=== PATIENT | male | born 1990 | race Caucasian/White ===

== ENCOUNTER 2016-12-09 17:16 | Emergency (ER) | payer BC, OTHER ==
[2016-12-09 17:22] VITALS: BP 137/86; PULSE 70; TEMP 98; BMI 26.7
[2016-12-09] MEDS ORDERED: RANITIDINE HCL 150 MG TABLET (FP) PO ONE (17:56)
[2016-12-09] MEDS ORDERED: MAG HYDROX/AL HYDROX/SIMETH 30 ML UNIT-DOSE CUP PO ONE (17:57)
--- NOTE | 2016-12-09 18:02 | PDOC ---
History of Present Illness - General Chief Complaint: Pain Stated Complaint: PAIN, ACUTE Time Seen by Provider: 12/09/16 17:40 History Source: Patient - History of Present Illness Timing/Duration: reports: changing over time Quality: reports: other Abdominal Pain Onset Location: reports: [facility] Pain Radiation: reports: no radiation Activities at Onset: reports: sleep Past History - Past Medical History Allergies/Adverse Reactions: Allergies Allergy/AdvReac Type Severity Reaction Status Date / Time No Known Allergies Allergy Verified 12/09/16 17:22 Home Medications: Ambulatory Orders No Home Medications 0 dose .ROUTE UTDICT 03/21/13 Famotidine [Pepcid] 20 mg PO DAILY #14 tablet 12/09/16 Mag Hydrox/Al Hydrox/Simeth [Mylanta Suspension -] 30 ml PO Q6H #1 bottle Other medical history: denies - Psycho/Social/Smoking Cessation Hx Anxiety: No Suicidal Ideation: No Smoking Status: No Smoking History: Never smoked Number of Cigarettes Smoked Daily: 0 Information on smoking cessation initiated: No Hx Alcohol Use: No Drug/Substance Use Hx: No Substance Use Type: None Review of Systems - Review of Systems Constitutional: No: Chills, Fever ABD/GI: No: Blood Streaked Bowels, Diarrhea, Nausea, Vomiting : No: Dysuria, Flank Pain, Hematuria *Physical Exam - Vital Signs Last Vital Signs Temp Pulse Resp BP Pulse Ox 98 F 70 17 137/86 100 12/09/16 17:20 12/09/16 17:20 12/09/16 17:20 12/09/16 17:20 12/09/16 17:20 - Physical Exam General Appearance: Yes: Appropriately Dressed. No: Apparent Distress HEENT: positive: Normal Voice Neck: positive: Supple Respiratory/Chest: positive: Lungs Clear, Normal Breath Sounds. negative: Respiratory Distress Cardiovascular: positive: Regular Rate, S1, S2 Gastrointestinal/Abdominal: positive: Normal Bowel Sounds, Tender (minimal ttp to L upper abd, no ttp to RUQ and no CVAT), Soft. negative: Distended, Guarding , Rebound Musculoskeletal: negative: CVA Tenderness Integumentary: positive: Dry, Warm Neurologic: positive: Fully Oriented, Alert, Normal Mood/Affect ED Treatment Course - LABORATORY CBC & Chemistry Diagram: 12/09/16 18:01 12/09/16 18:01 Medical Decision Making - Medical Decision Making 12/09/16 17:57 25-year-old male, denies any past medical history, here with abdominal pain. Patient reports waking up with upper abdominal pain this a.m. that has been mostly constant but gradually improving. Patient unable to describe pain but states at its worse it was 10 out of 10, now 6/10. Was able to tolerate po with no increase in pain. No nausea, vomiting, fever, chills, change to bowel movements or dysuria. No history of similar pain. Patient states last night he ate Sinhala food an hour before going to sleep last night See exam Upper abd pain, improving throughout the day Pt well emerald and stable in NAD +mininal ttp to L upper abd ?gastritis, no findings to suggest philly or renal colic -basic labs -GI cocktail -reassess 12/09/16 19:18 Labs unremarkable. Pt reports feeling better at this time. Will discharge at this time. Reasons to return d/w pt 12/09/16 19:21 *DC/Admit/Observation/Transfer Diagnosis at time of Disposition: Upper abdominal pain - Discharge Dispostion Disposition: HOME Condition at time of disposition: Improved - Prescriptions Prescriptions: Mag Hydrox/Al Hydrox/Simeth [Mylanta Suspension -] 30 ml PO Q6H #1 bottle Famotidine [Pepcid] 20 mg PO DAILY #14 tablet - Patient Instructions Printed Discharge Instructions: Gastritis Additional Instructions: Take medications as directed. If symptoms persists or worsens, return to ED - Post Discharge Activity Work/School Note: Back to Work
[2016-12-09] MEDS ORDERED: RANITIDINE HCL 150 MG TABLET (FP) ONE (18:06)
[2016-12-09] MEDS ORDERED: MAG HYDROX/AL HYDROX/SIMETH 30 ML UNIT-DOSE CUP ONE (18:06)
[2016-12-09 18:28] LABS: BASOPHIL 0.3 % (0-2.0); EOSINOPHIL 0.9 % (0-4.5); MCH 27.2 pg (25.7-33.7); MCHC 32.9 g/dl (32.0-35.9); MEAN CELL VOLUME 82.5 fl (80-96); MEAN PLT VOLUME 8.5 fl (7.5-11.1); NEUTROPHILS 68.9 % (42.8-82.8); PLATELET COUNT 214 K/MM3 (134-434); RDW 13.2 % (11.9-15.9); WHITE BLOOD COUNT 7.6 K/mm3 (4.0-10.0)
[2016-12-09 18:33] LABS: PH,URINE 7.5 (5.0-8.0); URINE APPEARANCE CLEAR; URINE BILIRUBIN NEGATIVE (NEGATIVE); URINE BLOOD NEGATIVE (NEGATIVE); URINE COLOR LT. YELLOW; URINE GLUCOSE (UA) NEGATIVE (NEGATIVE); URINE KETONE NEGATIVE (NEGATIVE); URINE LEUK ESTERASE NEGATIVE (NEGATIVE); URINE NITRITE NEGATIVE (NEGATIVE); URINE PROTEIN NEGATIVE (NEGATIVE); URINE UROBILINOGEN 0.2 E.U/dl E.U./dl (0.2-1.0)
[2016-12-09 18:54] LABS: ALBUMIN 4.1 g/dl (3.4-5.0); ANION GAP 9 (8-16); CALCIUM 9.3 mg/dL (8.5-10.1); CO2 29 mmol/L (21-32); GLUCOSE,RANDOM 88 mg/dL (74-106)
[2016-12-09 18:57] LABS: ALK PHOS 77 U/L (45-117); BILIRUBIN,TOTAL 0.3 mg/dL (0.2-1.0); COCKROFT - GAULT 135.1; CREATININE 1.2 mg/dL (0.7-1.3); SGOT/AST 11 U/L (15-37); SGPT/ALT 23 U/L (12-78); TOT PROT 8.2 g/dl (6.4-8.2)
== END 2016-12-09 19:35 | disposition home or self-care (01) ==
LOC: JERFT 17:16
DX: R10.12 Left upper quadrant pain (principal)
CPT/HCPCS: 36415; 80053; 81003; 83690; 85025; 99281-25

== ENCOUNTER 2017-02-05 12:07 | Emergency (ER) | payer BC ==
[2017-02-05 12:16] VITALS: BP 138/93; PULSE 90; TEMP 98.2; BMI 27.1
[2017-02-05] MEDS ORDERED: DIPHTH,PERTUSS(ACELL),TET 0.5 ML DISP.SYRIN IM ONE (13:17)
--- NOTE | 2017-02-05 13:21 | PDOC ---
History of Present Illness - General Chief Complaint: Laceration Stated Complaint: LACERATED LT FINGER Time Seen by Provider: 02/05/17 12:35 History Source: Patient Exam Limitations: No Limitations - History of Present Illness Initial Comments: 02/05/17 13:07 26-year-old male presents to the ED with complaints of right fourth digit laceration that he sustained while at work cutting a piece of plastic with a metal bleed. Patient states at around 9:00 incident occurred and states is not up-to-date on tetanus. Patient has no other complaints presently. Timing/Duration: reports: this morning Severity: Yes: mild Respiratory Risk Factors: reports: other (metal blade) Associated Symptoms: reports: other Past History - Travel Traveled outside of the country in the last 30 days: No Close contact w/someone who was outside of country & ill: No - Past Medical History Allergies/Adverse Reactions: Allergies Allergy/AdvReac Type Severity Reaction Status Date / Time No Known Allergies Allergy Verified 02/05/17 12:10 Home Medications: Ambulatory Orders NK [No Known Home Medication] 02/05/17 Other medical history: denies. - Psycho/Social/Smoking Cessation Hx Anxiety: No Suicidal Ideation: No Smoking Status: No Smoking History: Never smoked Number of Cigarettes Smoked Daily: 0 Hx Alcohol Use: No Drug/Substance Use Hx: No Substance Use Type: None Patient Lives Alone: No Lives with/in: parents Review of Systems - Review of Systems Able to Perform ROS?: Yes Constitutional: No: Symptoms Reported Musculoskeletal: No: Symptoms Reported Integumentary: Yes: Other Neurological: No: Symptoms reported Hematologic/Lymphatic: No: Symptoms Reported *Physical Exam - Vital Signs Last Vital Signs Temp Pulse Resp BP Pulse Ox 98.2 F 90 18 138/93 100 02/05/17 12:09 02/05/17 12:09 02/05/17 12:09 02/05/17 12:02/05/17 12:09 - Physical Exam General Appearance: Yes: Nourished, Appropriately Dressed. No: Apparent Distress Integumentary: positive: Normal Color, Warm, Other (patient with 2 cm linear laceration to the palmar aspect to the right fourth digit distal of the DIP joint. ) Neurologic: positive: Motor Strength 5/5 (ambulatory) Procedures - Laceration/Wound Repair Right Finger Wound Length: to 2.5 cm Wound Explored: clean Wound's Depth, Shape: superficial, linear Irrigated w/ Saline: Yes Betadine Prep: Yes Anesthesia: 1% Lidocaine Amount of Anesthetic (ccs): 1 Wound Repaired With: Sutures Suture Size/Type: 5:0 Number of Sutures: 6 Sterile Dressing Applied: Yes Medical Decision Making - Medical Decision Making 02/05/17 13:20 Patient laceration to the right fourth digit. Patient not up-to-date on tetanus. Patient ordered for tetanus. Suture repair done without difficulty patient to return here in 10-14 days. *DC/Admit/Observation/Transfer Diagnosis at time of Disposition: Laceration of finger Qualifiers: Encounter type: initial encounter Finger: ring finger Damage to nail status: without damage Foreign body presence: without foreign body Laterality: right Qualified Code(s): S61.214A - Laceration without foreign body of right ring finger without damage to nail, initial encounter - Discharge Dispostion Disposition: HOME Condition at time of disposition: Improved - Referrals Referrals: Bashir Smith [Primary Care Provider] - - Patient Instructions Printed Discharge Instructions: DI for Laceration Repair Additional Instructions: Please keep area clean and dry and covered changing the bandage as discussed daily starting in 48 hours. Return here in 10-14 days for suture removal.
== END 2017-02-05 13:26 | disposition home or self-care (01) ==
LOC: JERFT 12:07
PROC: 0HQFXZZ Repair Right Hand Skin, External Approach (ICD-10-PCS; principal; 2017-02-05)
PROC: 3E0234Z Introduction of Serum, Toxoid and Vaccine into Muscle, Percutaneous Approach (ICD-10-PCS; 2017-02-05)
DX: S61.214A Laceration without foreign body of right ring finger without damage to nail, initial encounter (principal); W45.8XXA Other foreign body or object entering through skin, initial encounter; Y93.89 Activity, other specified; Y92.89 Other specified places as the place of occurrence of the external cause; Y99.0 Civilian activity done for income or pay
CPT/HCPCS: 90715; 99282-25

== ENCOUNTER 2017-02-18 14:01 | Emergency (ER) | payer BC ==
[2017-02-18 14:11] VITALS: BP 141/68; PULSE 70; TEMP 98.1; BMI 27.1
--- NOTE | 2017-02-18 14:52 | PDOC ---
Suture Removal/Wound Check HPI - History of Present Illness Chief Complaint: Suture/Staple Removal (other) Stated Complaint: NADINE REMOVAL Time Seen by Provider: 02/18/17 14:28 History Source: Yes: Patient Exam Limitations: Yes: No Limitations Treated at: [facility] Date of Last ED visit: 02/05/17 - Previous ED Treatment Type of procedure performed on last visit: Yes: Laceration Repair Tetanus Immunization: Yes: Up to Date Past History - Past Medical History Allergies/Adverse Reactions: Allergies No Known Allergies Allergy (Verified 02/18/17 14:08) Home Medications: Ambulatory Orders NK [No Known Home Medication] 02/05/17 - Social History Smoking History: No Smoking Status: Never smoked Number of Ciarettes Per Day: 0 Alcohol Use: none Drug Use: none Suture Removal/Wound Check PE - Physical Exam Laceration/Wound Check Symptoms: reports: None Comments: 02/18/17 14:50 left 5th digit with sutures to be removed. 4 intact stitches (3 had fallen out, pt pulled one out) NURSE SPECIALIST cdi nv intact FROM of the digit *Review of Systems - Review of Systems Able to Perform ROS?: Yes Constitutional: No: Symptoms Reported HEENTM: No: Symptoms Reported Respiratory: No: Symptoms reported Cardiac (ROS): No: Symptoms Reported ABD/GI: No: Symptoms Reported : No: Symptoms Reported Musculoskeletal: No: Symptoms Reported Integumentary: Yes: See HPI Medical Decision Making - Medical Decision Making 02/18/17 14:51 cc: stitiches left 5th digit to be removed stitches removed without incident CDI well healed laceration *DC/Admit/Observation/Transfer Diagnosis at time of Disposition: Encounter for removal of sutures - Discharge Dispostion Disposition: HOME Condition at time of disposition: Improved - Patient Instructions Printed Discharge Instructions: DI for Suture Removal
== END 2017-02-18 14:52 | disposition home or self-care (01) ==
LOC: JERFT 14:01
DX: Z48.02 Encounter for removal of sutures (principal)
CPT/HCPCS: 99281-25